=== PATIENT | female | born 1985 | race Caucasian/White ===

== ENCOUNTER 2018-03-13 22:32 | Emergency (ER) | payer OTHER, SELFPAY ==
--- NOTE | 2018-03-13 22:36 | DI.RAD.S_ITS ---
PROCEDURE: XR FOOT LT MIN 3V INDICATIONS: Pain TECHNIQUE: 3 views of the foot were acquired. COMPARISON: None. FINDINGS: Bones: No fractures or dislocations. No suspicious bony lesions. Soft tissues: No tibiotalar joint effusion. Achilles tendon appears normal. IMPRESSION: Normal for age, source of current symptoms is not seen. Dictated by: Gilson Bird M.D. on 03/14/2018 at 8:03 Approved by: Gilson Bird M.D. on 03/14/2018 at 8:04
[2018-03-13 22:40] VITALS: BP 123/84; PULSE 80; RESP 15; TEMP 36.9; O2SAT 98; BMI 38.2
[2018-03-13 23:50] VITALS: BP 120/80; PULSE 80; RESP 16; O2SAT 98
--- NOTE | 2018-03-14 02:29 | ED_ITS ---
HPI - Extremity Injury (Lower) General Chief Complaint: Extremity Injury, Lower Stated Complaint: LT FOOT INJURY Time Seen by Provider: 03/13/18 22:41 Source: patient Mode of arrival: ambulatory Limitations: no limitations History of Present Illness HPI Narrative: 33-year-old female, non smoker presents with her friend in the chief complaint of an injury to her left foot. She was walking without shoes and accidentally ran her toes into a piece of furniture. She has pain with ambulation which seems to diminish with rest. She denies any other injury. She denies history of left foot injury. She denies any numbness, tingling weakness. MD complaint: foot injury Onset (ago): hour(s) Injury: Left: foot and toes Type of Injury: blunt Place: home Severity: mild Relieving factors: rest Exacerbating factors: weight bearing and movement Context: direct blow Related Data Previous Rx's Medication Instructions Recorded FERROUS GLUCONATE (IRON) 325 mg PO BID #90 03/04/12 Oxycodone/Acetaminophen (Percocet 0 tab PO Q4H PRN #30 03/04/12 5-325 MG Tablet) docusate sodium 250 mg PO BID #30 03/04/12 ibuprofen 600 mg PO QID #30 03/04/12 Review of Systems Review of Systems All systems reviewed & are unremarkable except as noted in HPI and below Constitutional Denies chills, Denies fever(s), Denies lethargy and Denies weakness Eyes Denies change in vision, Denies eye discharge, Denies irritation and Denies loss of vision ENT Ears, Nose, Mouth, and Throat: Denies change in voice, Denies neck pain and Denies sore throat Cardiovascular Denies chest pain, Denies irregular heart rhythm, Denies lightheadedness, Denies palpitations, Denies dyspnea, Denies dyspnea on exertion and Denies orthopnea Respiratory Denies cough, Denies dyspnea, Denies dyspnea on exertion and Denies wheezing Gastrointestinal Gastrointestinal: Denies abdominal pain, Denies change in bowel habits, Denies diarrhea, Denies nausea and Denies vomiting Genitourinary Denies hematuria, Denies flank pain, Denies urinary incontinence and Denies urinary urgency Musculoskeletal Reports abnormal gait and Denies neck pain Integumentary/Breasts Denies pruritus, Denies erythema, Denies rash and Denies wounds Neurologic Reports abnormal gait, Denies confusion, Denies loss of vision and Denies weakness Psychiatric Denies anxiety, Denies confusion, Denies depression, Denies homicidal ideation and Denies suicidal ideation Endocrine Denies palpitations Hematologic/Lymphatic Denies easy bruising Allergic/Immunologic Denies wheezing [facility] Social History Smoking Status: Never smoker Exam Narrative Exam Narrative: GEN: AOx3 and in mild distress EYES: Pupils are equal, round, and reactive to light and accommodation. Extraoccular muscles are intact bilaterally. There is no subconjunctival hemorrhage or exudate. CHEST: Lungs are clear to auscultation bilaterally and free of wheezes, rales, or rhonchi. Heart rate is regular rhythm, there are no murmurs, clicks, rubs, or gallops. There is no chest wall tenderness. ABD: Abdomen is soft and nontender. There is no guarding or rebound. Bowel sounds are normal in all 4 quadrants. There is no mass or organomegaly. EXT: Patient has tenderness to palpation and passive range of motion of her left 3rd and 4th toes. There is minimal erythema to her 4th toe but otherwise no external manifestation of injury. This is closed, isolated and neurovascularly intact. Sensation and cap refill present Full painless ROM of all extremities with no loss of sensation or strength. SKIN: Warm, pink, and dry. No erythema or rash Initial Vital Signs Initial Vital Signs: Vital Signs Temperature 98.4 F 03/13/18 22:40 Pulse Rate 80 03/13/18 22:40 Respiratory Rate 15 03/13/18 22:40 Blood Pressure 123/84 03/13/18 22:40 Pulse Oximetry 98 03/13/18 22:40 Procedures Orthopedic Splinting/Casting Injury #1: Side: left Lower Extremity Injury Location: foot and toe Lower Extremity Immobilizer: post-op shoe Course Orders Ordered: ED Orders 03/13/18 22:36 XR foot LT min 3V Stat Vital Signs - 8 hr 03/13/18 22:40 03/13/18 23:50 Temperature 98.4 F Pulse Rate 80 80 Pulse Rate [Left Dorsalis Pedis] 80 Respiratory Rate 15 16 Blood Pressure 123/84 120/80 Pulse Oximetry 98 98 Discharge Plan Departure Patient Disposition: Home Clinical Impression: Contusion of foot Discharge Date/Time: 03/13/18 23:50 Interventions: ED Discharge Assessment Last Done: 03/13/18 23:50 Instructions: DI for Contusion Activity Restrictions/Additional Instructions: *You have been diagnosed with [ L foot contusion and sprain] *What to do: *Take medications as directed: tylenol or motrin for pain *Follow up with your primary care provider in 2-3 days, call for an appointment. Let them know you were seen in the Emergency Department and that we ask that you be seen in follow up *Return to ER if you should have any new, worsening or concerning symptoms Radiographic study has been interpreted by an emergency physician. The official diagnosis by radiology will be performed within the next 24 hours and should there be any change in outcome we will notify you of how to proceed. Prescriptions: No Action ibuprofen 600 MG tablet 600 mg PO QID Qty: 30 RF: 1 docusate sodium 250 MG capsule 250 mg PO BID Qty: 30 RF: 1 FERROUS GLUCONATE (IRON) 325 mg PO BID Qty: 90 RF: 3 Oxycodone/Acetaminophen (Percocet 5-325 MG Tablet) PO Q4H PRN Qty: 30 RF: 0
== END 2018-03-13 23:50 | disposition home or self-care (01) ==
PROVIDERS: Emergency Provider Emergency Medicine; Family Provider Physician Assistant
DX: S90.32XA Contusion of left foot, initial encounter (principal); W22.8XXA Striking against or struck by other objects, initial encounter
CPT/HCPCS: 73630; 99282; 99283

== ENCOUNTER 2022-05-18 00:15 | Emergency (ER) | payer OTHER, SELFPAY ==
[2022-05-18] VITALS (11 sets, daily range): BP systolic 139–168; BP diastolic 71–103; PULSE 69–100; RESP 13–25; TEMP 36.8; O2SAT 96–100; BMI 44.9
--- NOTE | 2022-05-18 00:32 | DI.RAD.S_ITS ---
PROCEDURE: XR CHEST 1V INDICATIONS: chest pain TECHNIQUE: One view of the chest was acquired. COMPARISON: None. FINDINGS: Surgical changes and devices: None. Lungs and pleura: Lungs are clear. No pleural effusions or pneumothorax. Mediastinum: Mediastinal contours appear normal. Heart size is normal. Bones and chest wall: No suspicious bony lesions. Overlying soft tissues appear unremarkable. IMPRESSION: No acute pulmonary process. Dictated by: Linda Salas M.D. on 05/18/2022 at 1:45 Approved by: Linda Salas M.D. on 05/18/2022 at 1:45
--- NOTE | 2022-05-18 00:49 | DI.US.S_ITS ---
PROCEDURE: US ABDOMEN LIMITED INDICATIONS: SEVERE EPIGASTRIC PAIN TECHNIQUE: Real-time focused scanning was performed of the abdomen, with image documentation. COMPARISON: None. FINDINGS: Liver demonstrates mild steatosis. There are 3-4 mobile areas of increased echogenicity within the gallbladder lumen the largest measuring 7 mm. Wall thickness is normal measuring 1.8 mm. Common bile duct measures 3.4 mm. IMPRESSION: Cholelithiasis without imaging appearance of cholecystitis. Dictated by: Linda Salas M.D. on 05/18/2022 at 2:01 Approved by: Linda Salas M.D. on 05/18/2022 at 2:01
--- NOTE | 2022-05-18 00:50 | ED.CHESTPAIN ---
HPI - Chest Pain General Chief Complaint: Chest Pain Stated Complaint: chest pain, sob Time Seen by Provider: 05/18/22 00:16 Source: patient Mode of arrival: Ambulatory Limitations: no limitations History of Present Illness HPI narrative: 37F nonsmoker with history of GERD presents with her significant other and a chief complaint of sudden onset severe epigastric pain that started about 1 hour ago. She was up on the Internet when her symptoms started. She states that she tried to drink some water hoping that might help but in fact it made her symptoms worse. She states it starting to radiate a bit to her back. It is also made worse by deep breath and motion. She states that she had some coffee a bit ago but denies any use of alcohol. She is not dizzy nor weak or lightheaded. She denies chest pain. She states that she feels somewhat short of breath but thinks it likely is because that it hurts to take a deep breath. She denies nausea or vomiting. She is had no change in her bowel habits such as diarrhea or constipation. She denies any history of the same. She states she was in her normal state of health up until this point denies any exertional symptoms. She denies recent travel, trauma, injury, history of blood clot, cancer or lower extremity pain, swelling or redness Related Data Previous Rx's Medication Instructions Recorded FERROUS GLUCONATE (IRON) 325 mg PO BID ##90 03/04/12 Oxycodone/Acetaminophen (Percocet 0 tab PO Q4H PRN ##30 03/04/12 5-325 MG Tablet) docusate sodium 250 mg capsule 250 mg PO BID ##30 03/04/12 ibuprofen 600 mg tablet 600 mg PO QID ##30 03/04/12 ondansetron 4 mg disintegrating 4 mg PO TID-QID PRN nausea and 05/18/22 tablet vomiting #10 tabs pantoprazole 40 mg tablet,delayed 40 mg PO DAILY #30 tabs 05/18/22 release (Protonix) Allergies Allergy/AdvReac Type Severity Reaction Status Date / Time No Known Drug Allergies Allergy Verified 05/18/22 00:31 Review of Systems Review of Systems Narrative: GENERAL: Denies chills, fatigue, malaise, fever, sweats. HEENT: Denies sinus pain, ear pain, sore throat, difficulty swallowing, dizziness. RESPIRATORY: Denies dyspnea, cough, wheezing, hemoptysis, sputum. CARDIOVASCULAR: Denies chest pain, palpitations, orthopnea, edema, GASTROINTESTINAL: See HPI : Denies dysuria, frequency, incontinence, hematuria, urinary retention. MUSCULOSKELETAL: denies weakness, joint pain, or bony pain SKIN: Denies rash, skin lesions, or other NEUROLOGIC: Denies weakness, headache, numbness, change in speech, confusion, seizures, incoordination. PSYCHIATRIC: No concerning psychosocial issues. 12 point review of systems is negative except for those stated above Patient History Social History Smoking Status: Never smoker Smoking Status: Never smoker alcohol intake frequency: 0-2 drinks per day Substance Use Type: does not use Exam Narrative Exam Narrative: GENERAL: [37] year old patient appears stated age. Well-developed patient, in obvious distress HEAD: Atraumatic. Normocephalic. EYES: Pupils equal round and reactive. Extraocular motions intact. No scleral icterus. No injection or drainage. ENT: Nose without bleeding, purulent drainage. Throat without erythema, tonsillar hypertrophy or exudate. Airway patent. NECK: Trachea midline. Non tender CARDIOVASCULAR: Regular rate and rhythm without murmurs, gallops, or rubs. RESPIRATORY: Clear to auscultation. Breath sounds equal bilaterally. No wheezes, rales, or rhonchi. GASTROINTESTINAL: Abdomen soft, tender in the epigastrium and right upper quadrant, nondistended. EXTREMITIES: No edema or joint tenderness. BACK: Nontender without deformity or crepitance. No flank tenderness. NEURO: AOx3. SKIN: No rash or erythema of visible areas Initial Vital Signs Initial Vital Signs: Vital Signs Pulse Rate 69 05/18/22 00:19 Pulse Oximetry 99 05/18/22 00:19 Course Orders Ordered: Discontinued Medications Aspirin (Aspirin 81 Mg Chew Tab) 324 mg PO NOW ONE Stop: 05/18/22 00:33 Last Admin: 05/18/22 01:00 Dose: Not Given Documented By: YUSUF Sodium Chloride (Normal Saline 0.9%) 500 mls @ 1,000 mls/hr IV BOLUS ONE Stop: 05/18/22 01:18 Last Infusion: 05/18/22 02:50 Dose: 0 mls/hr Documented By: Admin: 05/18/22 01:10 Dose: 1,000 mls/hr Documented By: YUSUF Ondansetron HCl (Ondansetron 4 Mg Odt Prepack) 1 bottle MISC SEEINSTR ONE Stop: 05/18/22 02:40 Last Admin: 05/18/22 02:45 Dose: 1 bottle Documented By: JORGE Pantoprazole Sodium (Pantoprazole 40 Mg Vial) 40 mg IV NOW ONE Stop: 05/18/22 00:50 Last Admin: 05/18/22 01:10 Dose: 40 mg Documented By: YUSUF Vital Signs Vital signs: Vital Signs - 8 hr 05/18/22 00:24 05/18/22 00:19 05/18/22 00:23 Temperature 98.2 F Pulse Rate 90 69 Respiratory Rate 16 Blood Pressure 139/101 H 139/101 H Pulse Oximetry 100 99 Oxygen Delivery Method Room Air 05/18/22 00:23 Temperature Pulse Rate 90 Respiratory Rate Blood Pressure Pulse Oximetry 100 Oxygen Delivery Method MDM - Chest Pain Lab Data Result diagrams: 05/18/22 01:00 05/18/22 01:00 Labs: Lab Results 05/18/22 05/18/22 05/18/22 Range/Units 00:35 01:00 01:00 WBC 7.8 (4.5-11.0) X10^3/uL RBC 4.38 (4.0-5.2) X10^6/uL Hgb 13.2 (12.0-16.0) g/dL Hct 39.1 (36-46) % MCV 89.4 (80-100) fL MCH 30.1 (26-34) PG MCHC 33.7 (30-36) % RDW 13.2 (11.6-14.8) % Plt Count 217 (150-400) X10^3/uL Neut % (Auto) 70.3 (50-75) % Lymph % (Auto) 21.6 L (25-40) % [place] % (Auto) 7.4 (3-14) % Eos % (Auto) 0.4 L (2-4) % Baso % (Auto) 0.3 (0-2) % Neut # (Auto) 5500 (0821-4470) /uL Lymph # (Auto) 1700 (3876-5371) /uL [place] # (Auto) 600 (0-900) /uL Eos # (Auto) 0 (0-450) /uL Baso # (Auto) 0 (0-100) /uL ESR (0-20) MM/HR PT 11.6 (10.1-12.7) SECONDS INR 1.0 (0.9-1.3) APTT 35 (26-36) SECONDS D-Dimer (<500) ng/ml Sodium (137-145) mmol/L Potassium (3.4-5.1) mmol/L Chloride (98-107) mmol/L Carbon Dioxide (22-32) mmol/L BUN (7-17) mg/dL Creatinine (0.52-1.04) mg/dL Estimated GFR (>60) mL/min BUN/Creatinine Ratio (6-22) Glucose (70-100) mg/dL Calcium (8.4-10.2) mg/dL Magnesium (1.6-2.3) mg/dL Total Bilirubin (0.2-1.3) mg/dL AST (14-36) IU/L ALT (<35) IU/L Alkaline Phosphatase (38-126) U/L Total Creatine Kinase (30-135) U/L CK-MB (CK-2) CK-MB (CK-2) Rel Index Troponin I (0.01-0.034) ng/mL C-Reactive Protein (<1.0) mg/dL Total Protein (6.3-8.2) g/dL Albumin (3.5-5.0) g/dL Globulin (1.7-4.1) g/dL Albumin/Globulin Ratio (1.0-2.8) Lipase (23-300) U/L SARS-CoV-2 (PCR) Negative (Negative) 05/18/22 05/18/22 05/18/22 Range/Units 01:00 01:00 01:00 WBC (4.5-11.0) X10^3/uL RBC (4.0-5.2) X10^6/uL Hgb (12.0-16.0) g/dL Hct (36-46) % MCV (80-100) fL MCH (26-34) PG MCHC (30-36) % RDW (11.6-14.8) % Plt Count (150-400) X10^3/uL Neut % (Auto) (50-75) % Lymph % (Auto) (25-40) % [place] % (Auto) (3-14) % Eos % (Auto) (2-4) % Baso % (Auto) (0-2) % Neut # (Auto) (3389-0919) /uL Lymph # (Auto) (9202-6896) /uL [place] # (Auto) (0-900) /uL Eos # (Auto) (0-450) /uL Baso # (Auto) (0-100) /uL ESR 19 (0-20) MM/HR PT (10.1-12.7) SECONDS INR (0.9-1.3) APTT (26-36) SECONDS D-Dimer 396 (<500) ng/ml Sodium 137 (137-145) mmol/L Potassium 3.8 (3.4-5.1) mmol/L Chloride 106 (98-107) mmol/L Carbon Dioxide 22 (22-32) mmol/L BUN 12 (7-17) mg/dL Creatinine 0.66 (0.52-1.04) mg/dL Estimated GFR > 60 (>60) mL/min BUN/Creatinine Ratio 18.2 (6-22) Glucose 113 H (70-100) mg/dL Calcium 9.1 (8.4-10.2) mg/dL Magnesium 1.7 (1.6-2.3) mg/dL Total Bilirubin 0.4 (0.2-1.3) mg/dL AST 59 H (14-36) IU/L ALT 42 H (<35) IU/L Alkaline Phosphatase 116 (38-126) U/L Total Creatine Kinase 57 (30-135) U/L CK-MB (CK-2) TNP CK-MB (CK-2) Rel Index TNP Troponin I < 0.012 (0.01-0.034) ng/mL C-Reactive Protein (<1.0) mg/dL Total Protein 7.6 (6.3-8.2) g/dL Albumin 4.0 (3.5-5.0) g/dL Globulin 3.6 (1.7-4.1) g/dL Albumin/Globulin Ratio 1.1 (1.0-2.8) Lipase 193 (23-300) U/L SARS-CoV-2 (PCR) (Negative) 05/18/22 Range/Units 01:00 WBC (4.5-11.0) X10^3/uL RBC (4.0-5.2) X10^6/uL Hgb (12.0-16.0) g/dL Hct (36-46) % MCV (80-100) fL MCH (26-34) PG MCHC (30-36) % RDW (11.6-14.8) % Plt Count (150-400) X10^3/uL Neut % (Auto) (50-75) % Lymph % (Auto) (25-40) % [place] % (Auto) (3-14) % Eos % (Auto) (2-4) % Baso % (Auto) (0-2) % Neut # (Auto) (5456-4645) /uL Lymph # (Auto) (8393-9811) /uL [place] # (Auto) (0-900) /uL Eos # (Auto) (0-450) /uL Baso # (Auto) (0-100) /uL ESR (0-20) MM/HR PT (10.1-12.7) SECONDS INR (0.9-1.3) APTT (26-36) SECONDS D-Dimer (<500) ng/ml Sodium (137-145) mmol/L Potassium (3.4-5.1) mmol/L Chloride (98-107) mmol/L Carbon Dioxide (22-32) mmol/L BUN (7-17) mg/dL Creatinine (0.52-1.04) mg/dL Estimated GFR (>60) mL/min BUN/Creatinine Ratio (6-22) Glucose (70-100) mg/dL Calcium (8.4-10.2) mg/dL Magnesium (1.6-2.3) mg/dL Total Bilirubin (0.2-1.3) mg/dL AST (14-36) IU/L ALT (<35) IU/L Alkaline Phosphatase (38-126) U/L Total Creatine Kinase (30-135) U/L CK-MB (CK-2) CK-MB (CK-2) Rel Index Troponin I (0.01-0.034) ng/mL C-Reactive Protein 2.2 H (<1.0) mg/dL Total Protein (6.3-8.2) g/dL Albumin (3.5-5.0) g/dL Globulin (1.7-4.1) g/dL Albumin/Globulin Ratio (1.0-2.8) Lipase (23-300) U/L SARS-CoV-2 (PCR) (Negative) ECG Data Interpretation: [0024] EKG is normal sinus rhythm rate [89 ] and free of any signs of ischemia or ectopy. No ST segmental elevation or depression. No T wave inversions Discharge Plan Departure Patient Disposition: Home Clinical Impression: Biliary colic Instructions: DI for Gallstones Activity Restrictions/Additional Instructions: *You have been diagnosed with [epigastric pain, likely due to gallstones] * *What to do: *Please continue to take your regular medications as directed. [x ] New medication prescriptions sent to your pharmacy: [[facility] ] *Please follow up with Dr. Keller at [facility]. Call the office later today, let them know you were seen in the emergency department and we would like you seen in follow-up *Please consider a clear liquid diet for the next 24-48 hours and then slowly advance to regular as tolerated. Also, try to avoid alcohol, nicotine, caffeine, spicy, acidic or fatty foods as this may worsen your symptoms *If you do not have a primary care provider please contact the [facility] Resource line at [phone]. They will ask some questions about your medical history and help get you set up with a doctor in the community. *Return to Emergency Department if you should have any new, worsening or concerning symptoms, such as [fever greater than 101 F, shaking chills, worsening pain, persistent vomiting or other bothersome symptoms] Prescriptions: New pantoprazole [Protonix] 40 mg tablet,delayed release (DR/EC) 40 mg PO DAILY Qty: 30 0RF ondansetron 4 mg tablet,disintegrating 4 mg PO TID-QID PRN (Reason: nausea and vomiting) Qty: 10 0RF No Action ibuprofen 600 MG tablet 600 mg PO QID Qty: 30 1RF docusate sodium 250 MG capsule 250 mg PO BID Qty: 30 1RF FERROUS GLUCONATE (IRON) 325 mg PO BID Qty: 90 3RF Oxycodone/Acetaminophen (Percocet 5-325 MG Tablet) 0 tab PO Q4H PRN Qty: 30 0RF Referrals: Halle Keller MD [Physician] - Visit Report Forms: Patient Portal/API
[2022-05-18] MEDS: PANTOPRAZOLE 40 MG VIAL IV (01:10)
[2022-05-18] MEDS: SODIUM CHLORIDE 0.9% 500 ML 1000 ML IV (01:10)
[2022-05-18 01:15] LABS: Add Manual Diff / Slide Review NO; Basophils Absolute Auto 0 /uL (0-100); Basophils Percent Auto 0.3 % (0-2); Eosinophils Absolute Auto 0 /uL (0-450); Eosinophils Percent Auto 0.4 % (2-4); Hematocrit 39.1 % (36-46); Hemoglobin 13.2 g/dL (12.0-16.0); Lymphocytes Absolute Auto 1700 /uL (1100-4500); Lymphocytes Percent Auto 21.6 % (25-40); Mean Corpuscular HGB Conc 33.7 % (30-36); Mean Corpuscular Hemoglobin 30.1 PG (26-34); Mean Corpuscular Volume 89.4 fL (80-100); Monocytes Absolute Auto 600 /uL (0-900); Monocytes Percent Auto 7.4 % (3-14); Neutrophils Absolute Auto 5500 /uL (1500-7000); Neutrophils Percent Auto 70.3 % (50-75); Platelet Count 217 X10^3/uL (150-400); Red Blood Cell Count 4.38 X10^6/uL (4.0-5.2); Red Cell Distribution Width 13.2 % (11.6-14.8); White Blood Cell Count 7.8 X10^3/uL (4.5-11.0)
[2022-05-18 01:18] LABS: Prothrombin Time 11.6 SECONDS (10.1-12.7)
[2022-05-18 01:21] LABS: PTT Partial Thromboplastin Tim 35 SECONDS (26-36)
[2022-05-18 01:24] LABS: Alanine Aminotransferase 42 IU/L (<35); Albumin Globulin Ratio 1.1 (1.0-2.8); Alkaline Phosphatase 116 U/L (38-126); Aspartate Aminotransferase 59 IU/L (14-36); BUN Creatinine Ratio 18.2 (6-22); Bilirubin Total 0.4 mg/dL (0.2-1.3); Blood Urea Nitrogen 12 mg/dL (7-17); Calcium 9.1 mg/dL (8.4-10.2); Carbon Dioxide 22 mmol/L (22-32); Chloride 106 mmol/L (98-107); Creatine Kinase 57 U/L (30-135); Estimated Glomerular Filt Rate > 60 mL/min (>60); Globulin 3.6 g/dL (1.7-4.1); Glucose 113 mg/dL (70-100); HEMOLYSIS < 15 (0-50); Lipase 193 U/L (23-300); Magnesium 1.7 mg/dL (1.6-2.3); Potassium 3.8 mmol/L (3.4-5.1); Sodium 137 mmol/L (137-145); Total Protein 7.6 g/dL (6.3-8.2)
[2022-05-18 01:26] LABS: C-Reactive Protein Quant 2.2 mg/dL (<1.0)
[2022-05-18 01:28] LABS: D Dimer 396 ng/ml (<500)
[2022-05-18 01:34] LABS: COVID-19 CEPHEID PCR (VTM/NP) Negative (Negative)
[2022-05-18 01:35] LABS: Troponin I < 0.012 ng/mL (0.01-0.034)
[2022-05-18 01:36] LABS: Erythrocyte Sedimentation Rate 19 MM/HR (0-20)
[2022-05-18] MEDS: ONDANSETRON 4 MG ODT PREPACK 1 BOTTLE MISC (02:45)
== END 2022-05-18 02:51 | disposition home or self-care (01) ==
PROVIDERS: Emergency Provider Emergency Medicine; Family Provider Physician Assistant
DX: K80.50 Calculus of bile duct without cholangitis or cholecystitis without obstruction (principal); R07.9 Chest pain, unspecified; R06.02 Shortness of breath; Z20.822 Contact with and (suspected) exposure to COVID-19
CPT/HCPCS: 36415; 71045; 76705; 80053; 82550; 83690; 83735; 84484; 85025; 85379; 85610; 85651; 85730; 86140; 93005; 96361; 96374; 99284; U0003; U0005; C9113

== ENCOUNTER 2022-06-21 13:08 | Day surgery (SDC) | payer OTHER, SELFPAY ==
[2022-06-15 08:02] VITALS: BMI 44.9
[2022-06-21] VITALS (8 sets, daily range): BP systolic 119–150; BP diastolic 82–94; PULSE 81–117; RESP 8–20; TEMP 36.2–36.8; O2SAT 85–98; BMI 44.9
--- NOTE | 2022-06-21 | PATH_ITS ---
[facility] Accession Number: [id number] No. of containers..01 Tissue . 01 Material submitted: . gallbladder - GALLBLADDER . 01 Diagnosis: Gallbladder, Cholecystectomy: Chronic cholecystitis and cholelithiasis. MRV 06/27/2022 1406 Local . 01 Electronically signed: . Taylor Burns MD, Pathologist NPI- [id number] . 01 Gross description: . The specimen is received in formalin labeled with the patient's name, , and gallbladder, and consists of an intact gallbladder measuring 7.2 x 2.7 x 2.0 cm. The serosa is nair and smooth and the hepatic surface is rough and unremarkable. The cystic duct is received closed with a clamp, is inked blue, and no pericystic lymph node is identified. The lumen is filled with dark green mucoid bile and several yellow bosselated calculi measuring up to 0.2 cm in greatest dimension not grossly obstructing the cystic duct. The mucosa is dark green and velvety with no pinpoint yellow areas of discoloration, polyps, or lesions identified. The miller average 0.3 cm thick. Emergency Department Clinician sections to include the cystic duct margin and full=thickness sections are submitted in cassette A1. ([id number]) /MRV 06/22/2022 1100 Local . 01 Pathologist provided ICD-10: K80.20 . 01 CPT . 907199 Specimen Comment: A courtesy copy of this report has been sent to [phone] Performed at: 01 [facility] [address] [place] [address] [facility], [place], [place] [id number] MD Reddy Toledo MD Phone: [phone]
[2022-06-21] MEDS: LACTATED RINGERS 1,000 ML 42 ML IV ×2 (14:06→16:16)
--- NOTE | 2022-06-21 15:08 | PM.PREOP ---
Pre-operative Note COVID-19 COVID-19 status: Not tested Interval Note History & Physical reviewed/Exam performed by Physician: Yes Changes to H&P: No ASA Class (for procedural sedation): II
[2022-06-21] MEDS: CEFAZOLIN 2 GM/100 ML PREMIX 100 ML IV (15:34)
[2022-06-21] MEDS: BUPIVACAINE 0.5% W/ EPI (PF) 30 ML VIAL INJ (15:54)
--- NOTE | 2022-06-21 15:56 | SUR.OPER ---
Supine on padded OR bed, head on pillow, safety belt at thigh, left arm padded and tucked at side. Right arm secured on padded arm board <90 degrees abduction. Legs uncrossed. Padded footboard in place. Tape over blanket to secure lower legs.
--- NOTE | 2022-06-21 16:38 | PM.OP.1 ---
Operative Date/Time/Diagnoses Date of procedure: 06/21/22 Time of procedure: 16:38 Pre-op diagnosis: Cholelithiasis Post-op diagnosis: same Procedure & Clinicians Procedure: Laparoscopic cholecystectomy Same procedure as scheduled: Yes Surgeon: Ashish Gottlieb Anesthesia Type: General Operative Notes Procedure in detail: The patient was given preoperative antibiotic. The patient was brought to the operating room, placed on the table in the supine position. General endotracheal anesthesia was induced. The abdomen was prepped and draped. A time-out was performed. We made a 1 cm infraumbilical incision. We dissected down to the base of the umbilical stalk using cautery. We grasped the umbilical stalk with a Gonzalo clamp to elevate the abdominal wall. We scored the fascia in the midline with cautery 1 cm. We pierced the peritoneum with a Peon clamp. The Singh port was placed and the abdomen was insufflated to 15 mmHg. A 5 mm 30 degree laparoscopic was inserted. There was no evidence of any injury from the entry. Next, we placed 5 mm ports in the subxiphoid position and right upper quadrant at the midclavicular line and anterior axillary line. Patient was then positioned in reverse Trendelenburg and the table was tilted to the left. The gallbladder was grasped at the dome and retracted cephalad. We then dissected the cystic structures with a combination of hook cautery and blunt dissection. We obtained a critical view. We placed clips on the cystic duct and artery and divided the cystic duct and artery sharply between the clips. The gallbladder was then dissected off the liver and placed in a specimen retrieval bag. We irrigated the right upper quadrant and all the aspirate returned clear. We then removed the 5 mm ports under direct vision we removed the Singh port. We then injected some local into the fascia and closed the fascia with 2 interrupted 0 Vicryl sutures. The skin incisions were closed with 4-0 Monocryl and Steri-Strips were applied. Band-Aids were applied over the Steri-Strips. EBL: 20 mL Specimen: Gallbladder Post-operative Condition: stable Disposition: PACU
== END 2022-06-21 17:50 | disposition home or self-care (01) ==
PROVIDERS: Family Provider Physician Assistant; Referring Provider Surgery; Visit Provider Surgery
PROC: 0FT44ZZ Resection of Gallbladder, Percutaneous Endoscopic Approach (ICD-10-PCS; CPT 47562; principal; 2022-06-21 14:15)
DX: K80.10 Calculus of gallbladder with chronic cholecystitis without obstruction (principal)
CPT/HCPCS: 47562; J0690; J1100; J1885; J2250; J2405; J2704; J3010

== ENCOUNTER → 2024-03-14 14:47 | Outpatient (CLI) | payer OTHER, SELFPAY ==
[2024-03-14 15:43] LABS: Add Manual Diff / Slide Review NO; Basophils Absolute Auto 0 /uL (0-100); Basophils Percent Auto 0.1 % (0-2); Eosinophils Absolute Auto 0 /uL (0-450); Eosinophils Percent Auto 0.7 % (2-4); Hematocrit 41.2 % (36-46); Hemoglobin 14.2 g/dL (12.0-16.0); Lymphocytes Absolute Auto 1400 /uL (1100-4500); Mean Corpuscular HGB Conc 34.4 % (30-36); Mean Corpuscular Hemoglobin 31.1 PG (26-34); Mean Corpuscular Volume 90.2 fL (80-100); Monocytes Absolute Auto 400 /uL (0-900); Monocytes Percent Auto 7.9 % (3-14); Neutrophils Absolute Auto 3800 /uL (1500-7000); Neutrophils Percent Auto 67.3 % (50-75); Platelet Count 196 X10^3/uL (150-400); Red Blood Cell Count 4.57 X10^6/uL (4.0-5.2); Red Cell Distribution Width 12.8 % (11.6-14.8); White Blood Cell Count 5.7 X10^3/uL (4.5-11.0)
[2024-03-14 15:49] LABS: Alanine Aminotransferase 39 IU/L (<35); Albumin 4.1 g/dL (3.5-5.0); Albumin Globulin Ratio 1.4 (1.0-2.8); Alkaline Phosphatase 70 U/L (38-126); Aspartate Aminotransferase 32 IU/L (14-36); BUN Creatinine Ratio 17.3 (6-22); Bilirubin Total 0.6 mg/dL (0.2-1.3); Blood Urea Nitrogen 13 mg/dL (7-17); Calcium 9.3 mg/dL (8.4-10.2); Carbon Dioxide 24 mmol/L (22-32); Chloride 106 mmol/L (98-107); Cholesterol 162 mg/dL (140-199); Estimated Glomerular Filt Rate > 60 mL/min (>60); Glucose 112 mg/dL (70-100); HDL Cholesterol 34 mg/dL (40-60); HEMOLYSIS < 15 (0-50); LDL Cholesterol Calculated 99 mg/dL (<100); Potassium 3.8 mmol/L (3.4-5.1); Sodium 139 mmol/L (137-145); Total Protein 7.1 g/dL (6.3-8.2); Triglycerides 144 mg/dL (35-150)
[2024-03-14 16:20] LABS: TSH w/ Reflex to FT4 3.59 uIU/mL (0.47-4.68)
== END ==
LOC: LAB 14:48
PROVIDERS: Family Provider Physician Assistant; PCP Family Medicine; Referring Provider Family Medicine; Visit Provider Family Medicine
DX: Z13.220 Encounter for screening for lipoid disorders (principal); Z13.1 Encounter for screening for diabetes mellitus; E66.01 Morbid (severe) obesity due to excess calories; Z68.41 Body mass index [BMI] 40.0-44.9, adult; K90.0 Celiac disease; Z83.49 Family history of other endocrine, nutritional and metabolic diseases; Z71.3 Dietary counseling and surveillance
CPT/HCPCS: 36415; 80053; 80061; 83036; 83525; 84443; 85025